=== PATIENT | female | born 1980 | race Caucasian/White ===

== ENCOUNTER 2016-07-30 13:12 | Emergency (ER) | payer SELFPAY ==
[2016-07-30 13:26] VITALS: RESP 18
[2016-07-30] MEDS ORDERED: NS 1,000 ML IV ONE (13:44)
[2016-07-30] MEDS ORDERED: LORazepam 2 MG/ML INJ IVP ONE (13:46)
--- NOTE | 2016-07-30 13:54 | EDPHY ---
H & P Time Seen by Provider: 07/30/16 13:45 HPI/ROS: HPI: 36-year-old female presents to emergency department with chief concern alcohol withdrawal. Requesting help withdrawing. Started drinking at age 10, head 6 years of sobriety. Has withdrawn in the past. Has never experienced in alcohol withdrawal seizure. Last drink last night after drinking 40 oz a day for many months. Reports mild dizziness, feeling anxious, tremors, limbs feeling numb. Denies headache, visual changes, shortness of breath, chest pain , abdominal pain, nausea, vomiting, diarrhea. Denies other significant past medical history. No auditory or tactile disturbances, no hallucinations. ROS:10 point review of systems is negative other than as stated in HPI Past Medical/Surgical History: ETOH abuse Smoking Status: Current every day smoker Physical Exam: Temp 36.4, heart rate 122, respiratory rate 18, blood pressure 131/84, 100% on room air General: Awake, alert, calm, cooperative. No acute distress. Head: Normalocephalic. Atraumatic. EENT: PERRLA. EOMI. No pallor or injection. Anicteric. No nystagmus. No injection. Neck: Supple, nontender. No lymphadenopathy. Full range of motion. No meningismus. Respiratory: Breathing unlabored. Breath sounds equal bilaterally and clear to auscultation. No adventitious sounds. CV: Chest nontender, atraumatic. Heart rate regular. No murmur, distal pulses 2+ bilaterally. Brisk cap refill all extremities. GI: Abdomen soft, nontender. Bowel sounds normoactive and positive x4 quadrants. Neuro: Alert. Oriented x 3. Speech clear. Moderately tremulous. Positive tongue fasciculations. CIWA 11 Nonfocal cranial nerves throughout. Sensation intact all extremities. Skin: Skin warm, dry, intact. No rashes, abrasions, or lacerations. Skin turgor normal. Extremities: Full range of motion in all 4 extremities. Strength 5+ all extremities. Constitutional: Initial Vital Signs Temperature (C) 36.4 C 07/30/16 13:24 Heart Rate 122 H 07/30/16 13:24 Respiratory Rate 18 07/30/16 13:24 Blood Pressure 131/84 H 07/30/16 13:24 O2 Sat (%) 100 07/30/16 13:24 O2 Delivery Mode Room Air Allergies/Adverse Reactions: acetaminophen [From Vicodin] Allergy (Intermediate, Verified 07/30/16 13:24) palpitations hydrocodone bitartrate [From Vicodin] Allergy (Intermediate, Verified 07/30/16 13:24) palpitations Home Medications: Medication Instructions Recorded NK [No Known Home Meds] 07/30/16 Medical Decision Making ED Course/Re-evaluation: 36-year-old female with a CIWA score of 11 presents to emergency department requesting help with alcohol withdrawal. She would like to quit drinking. She has tried this in the past. No history of alcohol withdrawal seizures. Given 1 L normal saline, 2 mg IV Ativan. EKG obtained and shows 1415: After 2 mg IV Ativan, CIWA now 7. Patient feeling much better. I have recommended the [facility]. Patient is considering. Case management is discussing with her. Differential Diagnosis: Alcohol withdrawal, tachycardia, SVT - Data Points Medications Given: Discontinued Medications Sodium Chloride (Ns) 1,000 mls @ 0 mls/hr IV ONCE ONE PRN Reason: Wide Open Stop: 07/30/16 13:45 Last Admin: 07/30/16 14:00 Dose: 1,000 mls Lorazepam (Ativan Injection) 2 mg IVP EDNOW ONE Stop: 07/30/16 13:47 Last Admin: 07/30/16 14:01 Dose: 2 mg Departure - Departure Disposition: Home, Routine, Self-Care Clinical Impression: Alcohol withdrawal Qualifiers: Complication of substance-induced condition: uncomplicated Qualifier Code: ( F10.230) Alcohol dependence with withdrawal, uncomplicated Condition: Good Instructions: Alcohol Withdrawal (ED) Additional Instructions: Go to [facility] for assistance withdrawing from alcohol Follow up with primary care provider this week without fail--When you call to schedule appointment, please let the office know you are an "ER follow up" appointment" Referrals: NONE *PRIMARY CARE P,. [Primary Care Provider] - As per Instructions [facility] [Outside] - As per Instructions
--- NOTE | 2016-07-30 14:28 | CPEKG ---
Heart Rate: 101 RR Interval: 594 P-R Interval: 128 QRSD Interval: 86 QT Interval: 364 QTC Interval: 472 P [place]: 63 QRS [place]: 67 T Wave [place]: 40 EKG Severity - OTHERWISE NORMAL ECG - EKG Impression: SINUS TACHYCARDIA Electronically Signed By: Romel Mae 03-Aug-2016 22:22:20
[2016-07-30] MEDS ORDERED: CHLORDIAZEPOXIDE 25MG PREPK#6 BTL TAKEHOME ONE (15:14)
[2016-07-30 15:40] VITALS: BP 111/82; PULSE 101; TEMP 97; O2SAT 98
== END 2016-07-30 15:40 | disposition home or self-care (01) ==
DX: F10.230 Alcohol dependence with withdrawal, uncomplicated (principal); F17.200 Nicotine dependence, unspecified, uncomplicated
CPT/HCPCS: 96374

== ENCOUNTER 2016-08-03 11:55 | Emergency (ER) | payer SELFPAY ==
[2016-08-03 12:00] VITALS: TEMP 97.7
--- NOTE | 2016-08-03 13:11 | EDPHY ---
H & P Stated Complaint: 2nd visit for etoh withdrawal/left the [facility] thursday/ since she stopped Time Seen by Provider: 08/03/16 13:11 HPI/ROS: CHIEF COMPLAINT: Alcohol withdrawal HISTORY OF PRESENT ILLNESS: The patient presents to the ED with symptoms of mild alcohol withdrawal including tachycardia and slight tremor. The patient was seen in the emergency department earlier in the week and [facility]. She did not receive medical therapy and discharged home fairly quickly. The patient reports that she is not had a drink since Thursday. She continues to have mild nausea, subjective tachycardia and tremor. The patient denies suicidal or homicidal ideation. The patient denies significant past medical history. The patient denies taking any medication currently. REVIEW OF SYSTEMS: A comprehensive 10 point review of systems is otherwise negative aside from elements mentioned in the history of present illness. Source: Patient - Personal History LMP (Females 10-55): 1-7 Days Ago Current Tetanus/Diphtheria Vaccine: Yes - Medical/Surgical History Hx Asthma: No Hx Chronic Respiratory Disease: No Hx Diabetes: No Hx Cardiac Disease: No Hx Renal Disease: No Hx Cirrhosis: No Hx Alcoholism: Yes Hx HIV/AIDS: No Hx Splenectomy or Spleen Trauma: No Other PMH: alcohol abuse - Social History Smoking Status: Current every day smoker - Physical Exam Exam: General Appearance: Alert, no distress Eyes: Pupils equal and round no pallor or injection ENT, Mouth: Mucous membranes moist Respiratory: There are no retractions, lungs are clear to auscultation Cardiovascular: Regular rate and rhythm Gastrointestinal: Abdomen is soft and nontender, no masses, bowel sounds normal Neurological: A&O, normal motor function, normal sensory exam, normal cranial nerves Skin: Warm and dry, no rashes Musculoskeletal: Neck is supple nontender Extremities: symmetrical, full range of motion Constitutional: Initial Vital Signs Temperature (C) 36.5 C 08/03/16 11:58 Heart Rate 96 08/03/16 11:58 Respiratory Rate 16 08/03/16 11:58 Blood Pressure 131/85 H 08/03/16 11:58 O2 Sat (%) 98 08/03/16 11:58 O2 Delivery Mode Room Air Allergies/Adverse Reactions: acetaminophen [From Vicodin] Allergy (Intermediate, Verified 08/03/16 11:57) palpitations hydrocodone bitartrate [From Vicodin] Allergy (Intermediate, Verified 08/03/16 11:57) palpitations Home Medications: Medication Instructions Recorded IBUPROFEN 08/03/16 Ondansetron Odt [Zofran Odt] 4 mg PO Q4PRN PRN #20 tab 08/03/16 Medical Decision Making - Diagnostics EKG Interpretation: EKG: Complete interpretation has been separately recorded in the [facility] archive. Summary impression: Sinus rhythm, rate 87 ED Course/Re-evaluation: The patient presents the emergency department with symptoms of mild alcohol withdrawal. At this point time I do feel the [facility] an appropriate [facility] for the patient. She does not meet criteria for inpatient hospitalization based upon her CIWA score of 1-2. The patient has been instructed to return to the ED for markedly worsening symptoms or other concerns. The patient will be discharged home with a prescription for Zofran. Differential Diagnosis: Differential diagnosis considered includes alcohol withdrawal, tachycardia, dehydration, metabolic abnormality Departure - Departure Disposition: Home, Routine, Self-Care Clinical Impression: Alcohol withdrawal Condition: Good Instructions: Alcohol Withdrawal (ED) Additional Instructions: 1. Please use Zofran as needed for nausea. 2. Please continue to utilize the [facility] for symptoms surrounding your alcohol withdrawal. 3. Please return to the ED for severely worsening symptoms or other concerns. Referrals: [facility] [Outside] - As per Instructions
--- NOTE | 2016-08-03 13:24 | CPEKG ---
Heart Rate: 87 RR Interval: 690 P-R Interval: 128 QRSD Interval: 80 QT Interval: 376 QTC Interval: 453 P [place]: 68 QRS [place]: 71 T Wave [place]: 51 EKG Severity - NORMAL ECG - EKG Impression: SINUS RHYTHM Electronically Signed By: Romel Mae 04-Aug-2016 10:53:29
[2016-08-03 13:55] VITALS: BP 138/82; PULSE 85; RESP 18; O2SAT 97
== END 2016-08-03 13:54 | disposition home or self-care (01) ==
DX: F10.239 Alcohol dependence with withdrawal, unspecified (principal); F17.200 Nicotine dependence, unspecified, uncomplicated

== ENCOUNTER → 2017-10-19 | Outpatient (CLI) | payer OTHER | LOC: SBRMNEURO 21:00 | PROVIDERS: ATTEND Internal Medicine Pulmonary Disease | DX: G47.33 Obstructive sleep apnea (adult) (pediatric) (principal); G47.61 Periodic limb movement disorder ==